=== PATIENT | male | born 1985 | race African-American/Black ===

== ENCOUNTER 2021-12-15 06:18 | Emergency (ER) | payer OTHER ==
[~2021-12-15] VITALS: Ht 167.6 cm; Wt 72.6 kg
[2021-12-15 06:20] VITALS: BP 154/93
[2021-12-15] MEDS ORDERED: CLARITIN10 MG PO (06:40)
[2021-12-15] MEDS ORDERED: AMOXICILLIN875 MG PO (06:40)
== END 2021-12-15 07:13 | disposition home or self-care (01) ==
LOC: ER 06:18
DX: J32.9 Chronic sinusitis, unspecified (principal)